=== PATIENT | female | born 1970 | race Caucasian/White ===

== ENCOUNTER 2020-07-24 17:19 | Outpatient (CLI) | payer MEDICARE | END 2020-07-24 17:20 | disposition home or self-care (01) | LOC: LAB.N 17:19 | PROVIDERS: ATTEND Obstetrics & Gynecology | DX: N95.1 Menopausal and female climacteric states (principal) | CPT/HCPCS: 36415; 82670; 83001 ==

== ENCOUNTER 2021-01-17 12:00 | Outpatient (CLI) | payer MEDICARE ==
--- NOTE | 2021-01-18 13:29 | Mammography Report ---
BILATERAL DIGITAL DIAGNOSTIC MAMMOGRAM 3D/2D: 01/17/2021 CLINICAL: Palpable left breast lump. Comparison is made to exam dated: 04/10/2012 mammogram - [facility]. There are scattered fibrog landular elements in both breasts. There is a 1 cm oval mass with a circumscribed margin within the skin of the left breast at 2 o'clock . This correlates as palpated. No other significant masses, calcifications, or other findings are seen in either breast. IMPRESSION: INCOMPLETE: NEEDS ADDITIONAL IMAGING EVALUATION The 1 cm oval mass within the skin of the left breast is indeterminate. An ultrasound is recommended . This exam was interpreted at Station ID: [id number]. NOTE: For mammograms, a report in lay terms will be sent to the patient. Approximately 15% of breast malignancies will not be visualized mammographically. In the management of a palpable breast mass, a negative mammogram must not discourage biopsy of a clinically suspicious lesion. Electronically Signed By: Nik Gaviria M.D. ar/penrad:01/17/2021 14:23:15 ACR BI-RADS Category 0: Incomplete 3340F PARENCHYMAL PATTERN: (A) - The breast(s) demonstrate(s) scattered fibroglandular densities. BI-RADS CATEGORY: (0) - 0 Ultrasound [id number] Immediate follow-up LATERALITY: (L)
--- NOTE | 2021-01-18 13:29 | Ultrasound Report ---
LIMITED ULTRASOUND OF LEFT BREAST: 01/17/2021 CLINICAL: Palpable left breast lump. Comparison is made to exams dated: 01/17/2021 mammogram - [facility] and 04/10/2012 mammogram - [facility]. Color flow ultrasound of the left breast 2 o'clock region was performed. Garcia scale images of the r eal-time examination were reviewed. There is a benign 0.9 cm x 1 cm x 0.4 cm oval mass with a circumscribed margin within the skin of the left breast at 2 o'clock 16 cm from the nipple. This oval mass is hypoechoic with posterior acousti c enhancement. This correlates as palpated and with mammography findings. This lesion is located i n the skin, and is therefore not a breast lesion. IMPRESSION: BENIGN There is no sonographic evidence of malignancy. The 0.9 cm x 1 cm x 0.4 cm oval mass within the skin of the left breast most likely is a sebaceous cy st and is benign. Recommend clinical correlation and possible Dermatology consult if clinically deven cated. A 1 year screening mammogram is recommended. This exam was interpreted at Station ID: [id number]. Electronically Signed By: Nik pino/main:01/17/2021 14:26:33 Ultrasound BI-RADS: 2 Benign BI-RADS CATEGORY: (2) - 2 RECOMMENDATION: (ANNUAL) - Recommend routine annual screening mammography. [id number] 1 year screening LATERALITY: (B)
== END 2021-01-17 12:01 | disposition home or self-care (01) ==
LOC: DI 12:00
PROVIDERS: ATTEND Internal Medicine
DX: N63.21 Unspecified lump in the left breast, upper outer quadrant (principal)

== ENCOUNTER 2021-03-02 13:37 | Outpatient (CLI) | payer MEDICARE, MEDICAID ==
[2021-03-02 18:17] LABS: CALCIUM 9.6 mg/dL (8.5-10.3); CREATININE 1.4 mg/dL (0.4-1.0); POTASSIUM 3.4 mmol/L (3.5-5.0)
== END 2021-03-02 13:38 | disposition home or self-care (01) ==
LOC: LAB.N 13:37
PROVIDERS: ATTEND Internal Medicine
DX: N28.9 Disorder of kidney and ureter, unspecified (principal)
CPT/HCPCS: 36415; 80048

== ENCOUNTER 2021-09-06 10:48 | Outpatient (CLI) | payer MEDICARE, MEDICAID ==
[2021-09-06 12:10] LABS: CREATININE 1.1 mg/dL (0.4-1.0); POTASSIUM 3.9 mmol/L (3.5-5.0)
== END 2021-09-06 10:49 | disposition home or self-care (01) ==
LOC: LAB.N 10:48
DX: N28.9 Disorder of kidney and ureter, unspecified (principal)
CPT/HCPCS: 36415; 80048

== ENCOUNTER 2021-12-21 13:04 | Outpatient (CLI) | payer MEDICARE, MEDICAID ==
[2021-12-21 17:54] LABS: BASOPHILS % (AUTO) 0.6 %; EOSINOPHILS # (AUTO) 0.1 10^3/uL (0.0-0.7); EOSINOPHILS % (AUTO) 2.9 %; HCT - HEMATOCRIT 28.1 % (37.0-47.0); HGB - HEMOGLOBIN 8.9 g/dL (12.0-16.0); LYMPHOCYTES # (AUTO) 1.2 10^3/uL (1.5-3.5); LYMPHOCYTES % (AUTO) 38.9 %; MEAN CORPUSCULAR HEMOGLOBIN 28.8 pg (27.0-31.0); MEAN CORPUSCULAR HGB CONC 31.7 g/dL (32.0-36.0); MEAN CORPUSCULAR VOLUME 90.9 fL (81.0-99.0); MEAN PLATELET VOLUME 10.2 fL (7.9-10.8); MONOCYTES # (AUTO) 0.4 10^3/uL (0.0-1.0); MONOCYTES % (AUTO) 13.7 %; NEUTROPHILS # (AUTO) 1.4 10^3/uL (1.5-6.6); NEUTROPHILS % (AUTO) 43.6 %; PLT - PLATELET COUNT 207 10^3/uL (130-450); RED BLOOD COUNT 3.09 10^6/uL (4.20-5.40); RED CELL DISTRIBUTION WIDTH 26.7 % (12.0-15.0); WHITE BLOOD COUNT 3.1 x10^3/uL (4.8-10.8)
[2021-12-21 18:14] LABS: PLATELET ESTIMATE, MANUAL NORMAL (130-450,000) (NORMAL); PLATELET MORPHOLOGY NORMAL APPEARANCE (NORMAL); RBC MORPHOLOGY (MULTIPLE) 4+ ANISOCYTOSIS (NORMAL); SLIDE REVIEW? Indicated
== END 2021-12-21 13:05 | disposition home or self-care (01) ==
LOC: LAB.N 13:04
PROVIDERS: ATTEND Internal Medicine
DX: D64.9 Anemia, unspecified (principal); K92.2 Gastrointestinal hemorrhage, unspecified; E03.9 Hypothyroidism, unspecified
CPT/HCPCS: 36415; 84443; 85025

== ENCOUNTER 2022-02-11 16:59 | Outpatient (CLI) | payer MEDICARE, MEDICAID ==
--- NOTE | 2022-02-11 17:45 | XRAY Report ---
PROCEDURE: Chest 2 View X-Ray INDICATIONS: COUGH TECHNIQUE: 2 views of the chest were acquired. COMPARISON: None FINDINGS: Surgical changes and devices:. Clips are seen on the lateral view. Lungs and pleura: No pleural effusions or pneumothorax. Focal nodular opacity can be seen within the right perihilar region, measuring 2.8 cm. Mild generalized interstitial prominence can be seen. The lungs otherwise are relatively clear. Mediastinum: Mediastinal contours are normal. Heart size is normal. Bones and chest wall: No suspicious bony abnormalities. Age-appropriate degenerative changes are se en. There is accentuated thoracic kyphosis. Soft tissues appear unremarkable. IMPRESSION: 2.8 cm right perihilar nodule seen. There is moderate suspicion for neoplasm. When clinically appropr iate, please consider a dedicated follow-up chest CT with IV contrast. Mild generalized interstitial prominence can be seen. Please consider mild underlying pulmonary edema . Note: Findings and recommendations discussed by telephone with Berna at 4:42 PM [place] time on 01/18. Reviewed by: Albert Magana MD on 02/11/2022 4:44 PM [place] Approved by: Albert Magana MD on 02/11/2022 4:44 PM [facility] Station ID: [id number]
== END 2022-02-11 23:59 | disposition home or self-care (01) ==
LOC: DI.N 16:59
PROVIDERS: ATTEND Physician Assistant
DX: R91.1 Solitary pulmonary nodule (principal)

== ENCOUNTER 2023-10-28 13:37 | Outpatient (CLI) | payer MEDICARE, MEDICAID ==
[2023-10-28 18:26] LABS: THYROID STIMULATING HORMONE 7.54 uIU/mL (0.34-5.60)
== END 2023-10-28 13:38 | disposition home or self-care (01) ==
LOC: LAB.N 13:37
DX: E03.9 Hypothyroidism, unspecified (principal)
CPT/HCPCS: 36415; 84439; 84443